=== PATIENT | male | born 1965 | race Caucasian/White ===

== ENCOUNTER 2021-05-29 10:39 | Emergency (ER) | payer BC ==
[~2021-05-29] VITALS: Ht 172.7 cm; Wt 75.0 kg
[2021-05-29] MEDS ORDERED: IBUPROFEN 600MG TABLET PO STA (11:12)
[2021-05-29] MEDS ORDERED: ACETAMINOPHEN 325MG TABLET PO STA (11:12)
[2021-05-29 12:23] LABS: BASOPHILS % 1.1 % (0.0-2.0); EOSINOPHILS % 2.1 % (0.0-5.0); HEMOGLOBIN. 15.7 g/dL (14.0-18.0); MEAN CORPUSCULAR VOLUME 86.9 fL (80.0-94.0); MONOCYTES % 10.5 % (2.0-8.0); NEUTROPHILS % 66.3 % (40.0-76.0); PLATELET 136 x1000/uL (130-400); RED BLOOD CELL COUNT 5.41 mill/uL (4.7-6.1); RED CELL DISTRIBUTION WIDTH 15.6 % (11.6-14.6)
[2021-05-29 12:30] LABS: CHLORIDE 106 mEq/L (98-107)
[2021-05-29] MEDS ORDERED: TOPUD MT (16:23)
[2021-05-29] MEDS ORDERED: NAPR-1176 MT (16:23)
[2021-05-29 16:40] VITALS: BP 137/85
== END 2021-05-29 16:42 | disposition home or self-care (01) ==
LOC: ER 10:46
DX: R07.89 Other chest pain (principal); M54.50 Low back pain, unspecified; I25.2 Old myocardial infarction; I10 Essential (primary) hypertension; E11.9 Type 2 diabetes mellitus without complications
CPT/HCPCS: 36415; 71045; 72100; 80053; 83880; 84484; 85025; 93005; 99285